=== PATIENT | male | born 1970 | race Two or more races ===

== ENCOUNTER 2019-11-18 21:31 | Emergency (ER) | payer OTHER ==
--- NOTE | 2019-11-18 21:50 | NUR ---
PATIENT WAS CALLED SEVERAL TIMES TO BE TRIAGED. PATIENT WAS NOT PRESENT.
--- NOTE | 2019-11-18 21:55 | NUR ---
PATIENT LEFT WITHOUT BEING TRIAGED OR SEEN BY [facility]MD.
== END 2019-11-18 21:56 | disposition left against medical advice (07) ==
LOC: ER 21:34
DX: Z53.21 Procedure and treatment not carried out due to patient leaving prior to being seen by health care provider (principal)